=== PATIENT | female | born 1990 | race Caucasian/White ===

== ENCOUNTER 2017-06-18 10:20 | Outpatient (CLI) | payer OTHER ==
[~2017-06-18] VITALS: Ht 152.4 cm; Wt 52.6 kg
[~2017-06-18 10:20] MED LIST: FLONASE16 GM NASAL; LOTRISONE CREAM45 GM TOP; LOTRISONE CREAM45 GM TP; PRED FORTE0.05 MG/DR OP; RELAFEN500 MG; ZYRTEC10 MG PO
[2017-06-18] MEDS ORDERED: ANTICONCEPTIVOS (10:25)
== END 2017-06-18 11:50 | disposition home or self-care (01) ==
LOC: PPHC 10:20
DX: Z00.8 Encounter for other general examination (principal)

== ENCOUNTER 2017-08-10 07:08 | Outpatient (CLI) | payer OTHER ==
[~2017-08-10 07:08] MED LIST changes: +ANTICONCEPTIVOS
== END 2017-08-10 07:47 | disposition home or self-care (01) ==
LOC: RAD 07:08
DX: M54.6 Pain in thoracic spine (principal); Z12.31 Encounter for screening mammogram for malignant neoplasm of breast

== ENCOUNTER 2017-11-18 16:38 | Outpatient (CLI) | payer OTHER | END 2017-11-18 16:40 | disposition home or self-care (01) | LOC: LAB 16:38 | DX: D64.89 Other specified anemias (principal); E04.8 Other specified nontoxic goiter; E04.1 Nontoxic single thyroid nodule; E03.8 Other specified hypothyroidism ==

== ENCOUNTER 2018-06-07 07:34 | Outpatient (CLI) | payer OTHER | END 2018-06-07 07:37 | disposition home or self-care (01) | LOC: RAD 07:34 | DX: R05 Cough (principal) ==

== ENCOUNTER → 2018-06-07 | Outpatient (CLI) | payer OTHER | END | disposition home or self-care (01) | LOC: LAB 14:10 | DX: D64.89 Other specified anemias (principal); E11.9 Type 2 diabetes mellitus without complications; E78.2 Mixed hyperlipidemia; I10 Essential (primary) hypertension; E03.8 Other specified hypothyroidism ==

== ENCOUNTER 2018-06-29 07:12 | Outpatient (CLI) | payer OTHER | END 2018-06-29 07:19 | disposition home or self-care (01) | LOC: SONOGRAMA 07:12 | DX: M25.562 Pain in left knee (principal) ==

== ENCOUNTER 2018-07-05 09:08 | Outpatient (CLI) | payer OTHER | END 2018-07-05 17:00 | disposition home or self-care (01) | LOC: MRI 09:08 | DX: M25.562 Pain in left knee (principal) | CPT/HCPCS: 73721 ==

== ENCOUNTER 2018-09-12 08:01 | Outpatient (CLI) | payer OTHER | END 2018-09-12 08:11 | disposition home or self-care (01) | LOC: LAB 08:01 | DX: M45.9 Ankylosing spondylitis of unspecified sites in spine (principal); M06.80 Other specified rheumatoid arthritis, unspecified site ==

== ENCOUNTER 2018-09-16 08:35 | Outpatient (CLI) | payer OTHER | END 2018-09-16 09:00 | disposition home or self-care (01) | LOC: LAB 08:35 | DX: R05 Cough (principal); R06.02 Shortness of breath ==

== ENCOUNTER 2018-09-18 07:52 | Outpatient (CLI) | payer OTHER | END 2018-09-18 17:00 | disposition home or self-care (01) | LOC: TOM 07:52 | DX: Z03.89 Encounter for observation for other suspected diseases and conditions ruled out (principal); R05 Cough; R06.02 Shortness of breath ==

== ENCOUNTER 2018-10-31 13:26 | Outpatient (CLI) | payer OTHER | END 2018-10-31 14:23 | disposition home or self-care (01) | LOC: TOM 13:26 | DX: R42 Dizziness and giddiness (principal); R51 Headache ==

== ENCOUNTER 2018-11-30 13:47 | Outpatient (CLI) | payer OTHER ==
[~2018-11-30] VITALS: Ht 152.4 cm; Wt 54.9 kg
== END 2018-11-30 14:00 | disposition home or self-care (01) ==
LOC: OFIC 805 13:47
DX: H81.49 Vertigo of central origin, unspecified ear (principal); H93.90 Unspecified disorder of ear, unspecified ear; H69.90 Unspecified Eustachian tube disorder, unspecified ear

== ENCOUNTER 2018-12-13 08:37 | Outpatient (CLI) | payer OTHER | END 2018-12-13 13:41 | disposition home or self-care (01) | LOC: LAB 08:37 | DX: D68.61 Antiphospholipid syndrome (principal); M32.19 Other organ or system involvement in systemic lupus erythematosus; M35.00 Sjogren syndrome, unspecified; D86.9 Sarcoidosis, unspecified ==

== ENCOUNTER 2018-12-18 07:35 | Outpatient (CLI) | payer OTHER | END 2018-12-18 07:58 | disposition home or self-care (01) | LOC: NUCLEAR 07:35 | DX: M25.50 Pain in unspecified joint (principal) | CPT/HCPCS: 78306; A9503 ==

== ENCOUNTER 2019-04-10 09:05 | Outpatient (CLI) | payer OTHER | END 2019-04-10 09:18 | disposition home or self-care (01) | LOC: LAB 09:05 | DX: Z00.8 Encounter for other general examination (principal) ==

== ENCOUNTER 2019-04-12 09:27 | Outpatient (CLI) | payer OTHER | END 2019-04-12 10:32 | disposition home or self-care (01) | LOC: EKG 09:27 | DX: Z00.00 Encounter for general adult medical examination without abnormal findings (principal); J11.1 Influenza due to unidentified influenza virus with other respiratory manifestations ==

== ENCOUNTER 2019-10-22 08:59 | Outpatient (CLI) | payer OTHER ==
[~2019-10-22] VITALS: Ht 152.4 cm; Wt 56.7 kg
[2019-11-13] MEDS ORDERED: FLONASE16 GM NASAL (13:19)
[2019-11-13] MEDS ORDERED: ZYRTEC10 M3 PO (13:19)
[2019-11-13] MEDS ORDERED: DERMOTIC20 ML OTIC (13:21)
== END 2019-10-22 13:49 | disposition home or self-care (01) ==
LOC: OFIC 805 08:59
PROVIDERS: ATTEND Otolaryngology
DX: H93.8X3 Other specified disorders of ear, bilateral (principal); R42 Dizziness and giddiness; H61.93 Disorder of external ear, unspecified, bilateral

== ENCOUNTER 2019-11-06 07:03 | Outpatient (CLI) | payer OTHER ==
[2019-11-13] MEDS ORDERED: ZYRTEC10 M3 PO (13:19)
[2019-11-13] MEDS ORDERED: FLONASE16 GM NASAL (13:19)
[2019-11-13] MEDS ORDERED: DERMOTIC20 ML OTIC (13:21)
== END 2019-11-06 13:33 | disposition home or self-care (01) ==
LOC: TOM 07:03
PROVIDERS: ATTEND Otolaryngology
DX: J32.0 Chronic maxillary sinusitis (principal)

== ENCOUNTER → 2019-11-13 | Outpatient (CLI) | payer OTHER ==
[~2019-11-13] MED LIST changes: +DERMOTIC20 ML OTIC; +ZYRTEC10 M3 PO
== END | disposition home or self-care (01) ==
LOC: OFIC 805 11:30
PROVIDERS: ATTEND Otolaryngology
DX: L30.8 Other specified dermatitis (principal); J30.89 Other allergic rhinitis; R22.1 Localized swelling, mass and lump, neck

== ENCOUNTER 2020-02-18 07:06 | Outpatient (CLI) | payer OTHER | END 2020-02-18 12:29 | disposition home or self-care (01) | LOC: SONOGRAMA 07:06 | PROVIDERS: ATTEND Otolaryngology | DX: R22.1 Localized swelling, mass and lump, neck (principal) ==

== ENCOUNTER 2021-04-14 08:00 | Outpatient (CLI) | payer OTHER | END 2021-04-14 08:30 | disposition home or self-care (01) | LOC: PPH VACUNA 08:00 → EDBD 08:00 → PPH VACUNA 08:30 | PROVIDERS: ATTEND Emergency Medicine Pediatric Emergency Medicine | DX: Z23 Encounter for immunization (principal) ==

== ENCOUNTER 2021-06-20 12:06 | Emergency (ER) | payer OTHER ==
[~2021-06-20] VITALS: Ht 162.6 cm; Wt 50.8 kg
[2021-06-20] MEDS ORDERED: PREDNISOLONE ACE5 ML OP (12:21)
== END 2021-06-20 15:14 | disposition home or self-care (01) ==
LOC: ER 12:06 → EDBD 12:09 → ER 12:09
DX: O46.91 Antepartum hemorrhage, unspecified, first trimester (principal)

== ENCOUNTER 2021-09-03 14:43 | Outpatient (CLI) | payer OTHER ==
[~2021-09-03 14:43] MED LIST changes: +PREDNISOLONE ACE5 ML OP
== END 2021-09-03 15:54 | disposition home or self-care (01) ==
LOC: LAB 14:43
PROVIDERS: ATTEND General Practice
DX: Z20.822 Contact with and (suspected) exposure to COVID-19 (principal); R05.9 Cough, unspecified; R50.9 Fever, unspecified; R06.02 Shortness of breath

== ENCOUNTER 2022-08-16 13:07 | Outpatient (CLI) | payer OTHER | END 2022-08-16 14:46 | disposition home or self-care (01) | LOC: RAD 13:07 | PROVIDERS: ATTEND Pediatrics | DX: J40 Bronchitis, not specified as acute or chronic (principal); G44.209 Tension-type headache, unspecified, not intractable; R05.9 Cough, unspecified; Z20.822 Contact with and (suspected) exposure to COVID-19; U07.1 COVID-19 ==

== ENCOUNTER 2022-08-17 08:35 | Outpatient (CLI) | payer OTHER | END 2022-08-17 08:43 | disposition home or self-care (01) | LOC: LAB 08:35 | PROVIDERS: ATTEND Pediatrics | DX: J40 Bronchitis, not specified as acute or chronic (principal); G44.209 Tension-type headache, unspecified, not intractable; R05.8 Other specified cough; R50.9 Fever, unspecified; Z20.822 Contact with and (suspected) exposure to COVID-19; U07.1 COVID-19 ==

== ENCOUNTER 2022-12-20 13:37 | Outpatient (CLI) | payer OTHER | END 2022-12-20 13:44 | disposition home or self-care (01) | LOC: RAD 13:37 | DX: M99.01 Segmental and somatic dysfunction of cervical region (principal); M99.02 Segmental and somatic dysfunction of thoracic region; M99.03 Segmental and somatic dysfunction of lumbar region; M99.04 Segmental and somatic dysfunction of sacral region; M99.05 Segmental and somatic dysfunction of pelvic region ==

== ENCOUNTER 2022-12-21 13:05 | Outpatient (CLI) | payer OTHER | END 2022-12-21 13:10 | disposition home or self-care (01) | LOC: RAD 13:05 | PROVIDERS: ATTEND General Practice | DX: M79.671 Pain in right foot (principal) ==

== ENCOUNTER → 2022-12-23 15:27 | Outpatient (CLI) | payer OTHER | END | disposition home or self-care (01) | LOC: LAB 12:38 | PROVIDERS: ATTEND Radiology Diagnostic Radiology | DX: R10.30 Lower abdominal pain, unspecified (principal) ==

== ENCOUNTER 2022-12-24 07:05 | Outpatient (CLI) | payer OTHER | END 2022-12-24 07:30 | disposition home or self-care (01) | LOC: MRI 07:05 | PROVIDERS: ATTEND Physical Medicine & Rehabilitation | DX: M54.16 Radiculopathy, lumbar region (principal); R20.2 Paresthesia of skin | CPT/HCPCS: 72149 ==

== ENCOUNTER → 2023-04-11 08:06 | Outpatient (CLI) | payer OTHER ==
[2023-04-11 09:19] LABS: PH,URINE 6.5 (5.0-8.0); URINE APPEARANCE Clear; URINE BILIRRUBIN Negative (NEGATIVE); URINE BLOOD Negative; URINE COLOR Yellow; URINE GLUCOSE Negative (NEGATIVE); URINE LEUKOCYTE Negative; URINE NITRATE Negative; URINE PROTEIN Negative (NEGATIVE)
[2023-04-11 09:21] LABS: HEMATOCRIT 34.7 % (36.0-45.00); HEMOGLOBIN 11.8 g/dL (12.0-15.00); MEAN CELL VOLUME 86.5 fL (80.00-100.00); MEAN CORPUSCULAR HEMOGLOBIN 29.4 pg (27.00-32.0); PLATELET COUNT 362 K/uL (150-450); RED BLOOD COUNT 4.01 M/uL (4.00-6.00); RED CELL DISTRIBUTION WIDTH 14.9 % (11.5-14.5)
[2023-04-11 09:24] LABS: URINE BACTERIA 1988.2 uL (0.0-1933); URINE EPITHELIAL CELLS 13.4 uL (0.0-38.8); URINE RBC 7.6 uL (0.0-20.8); URINE WBC 32.4 uL (0.0-23.2)
[2023-04-11 09:50] LABS: BILIRUBIN TOTAL 0.65 mg/dL (0.3-1.2); CALCIUM 9.2 mg/dL (8.5-10.1); CHOL HDL RATIO 1.8 (0-5.0); CREATININE SERUM 0.57 mg/dL (0.55-1.02); GFR 122.15; GLOBULINA 3.4 G/DL (2.4-3.5); POTASSIUM 4.54 mEq/L (3.5-5.1); T4 FREE 1.03 NG/ML (0.76-1.46); TOTAL PROTEIN 7.4 gm/dL (6.4-8.2); TSH 0.697 uIU/mL (0.358-3.74)
== END | disposition home or self-care (01) ==
LOC: LAB 08:06
PROVIDERS: ATTEND Internal Medicine Sports Medicine
DX: D64.9 Anemia, unspecified (principal); E11.9 Type 2 diabetes mellitus without complications; E78.2 Mixed hyperlipidemia; I10 Essential (primary) hypertension; E03.8 Other specified hypothyroidism

== ENCOUNTER 2023-04-22 08:22 | Outpatient (CLI) | payer OTHER ==
[2023-04-22 10:30] LABS: PH,URINE 6.5 (5.0-8.0); URINE APPEARANCE Clear; URINE BILIRRUBIN Negative (NEGATIVE); URINE BLOOD Negative; URINE COLOR Yellow; URINE GLUCOSE Negative (NEGATIVE); URINE LEUKOCYTE Negative; URINE NITRATE Negative; URINE PROTEIN Negative (NEGATIVE)
[2023-04-22 10:34] LABS: URINE EPITHELIAL CELLS 1.5 uL (0.0-38.8); URINE RBC 6.3 uL (0.0-20.8)
[2023-04-22 10:48] LABS: URINE WBC 0.4 uL (0.0-23.2)
== END 2023-04-22 08:38 | disposition home or self-care (01) ==
LOC: LAB 08:22
PROVIDERS: ATTEND Physical Medicine & Rehabilitation
DX: N39.0 Urinary tract infection, site not specified (principal)

== ENCOUNTER 2023-04-22 08:46 | Outpatient (CLI) | payer OTHER | END 2023-04-22 08:48 | disposition home or self-care (01) | LOC: SONOGRAMA 08:46 | PROVIDERS: ATTEND Internal Medicine Sports Medicine | DX: N63.0 Unspecified lump in unspecified breast (principal) ==

== ENCOUNTER 2023-08-24 08:16 | Outpatient (CLI) | payer OTHER ==
[2023-08-24 09:03] LABS: HEMATOCRIT 35.4 % (36.0-45.00); HEMOGLOBIN 11.7 g/dL (12.0-15.00); MEAN CELL VOLUME 84.5 fL (80.00-100.00); MEAN CORPUSCULAR HGB CONC 33.1 g/dl (32.0-36.0); PLATELET COUNT 363 K/uL (150-450); RED BLOOD COUNT 4.19 M/uL (4.00-6.00); RED CELL DISTRIBUTION WIDTH 15.1 % (11.5-14.5)
[2023-08-24 09:49] LABS: ALBUMIN 4.1 gm/dL (3.4-5.0); BILIRUBIN TOTAL 0.66 mg/dL (0.3-1.2); CALCIUM 9.2 mg/dL (8.5-10.1); CHOL HDL RATIO 1.9 (0-5.0); CREATININE SERUM 0.64 mg/dL (0.55-1.02); GFR 106.22; GLOBULINA 3.4 G/DL (2.4-3.5); POTASSIUM 4.98 mEq/L (3.5-5.1); TOTAL PROTEIN 7.5 gm/dL (6.4-8.2); TSH 0.605 uIU/mL (0.358-3.74)
[2023-08-24 10:49] LABS: VITAMIN D3 25 HYDROXY 22.21 ng/ml (30-120)
[2023-08-25 08:55] LABS: URINE APPEARANCE Clear; URINE BACTERIA 52.8 uL (0.0-1933); URINE BILIRRUBIN Negative (NEGATIVE); URINE BLOOD Negative; URINE COLOR Yellow; URINE GLUCOSE Negative (NEGATIVE); URINE LEUKOCYTE Negative; URINE NITRATE Negative; URINE PROTEIN Negative (NEGATIVE); URINE RBC 2.8 uL (0.0-20.8); URINE UROBILINOGEN 0.2 E.U./dl
[2023-08-25 09:14] LABS: URINE WBC 0.3 uL (0.0-23.2)
== END 2023-08-24 08:28 | disposition home or self-care (01) ==
LOC: LAB 08:16
PROVIDERS: ATTEND Specialist
DX: G35 Multiple sclerosis (principal)

== ENCOUNTER → 2024-02-17 07:18 | Outpatient (CLI) | payer OTHER ==
[2024-02-17 09:23] LABS: CREATININE SERUM 0.56 mg/dL (0.55-1.02)
== END | disposition home or self-care (01) ==
LOC: LAB 07:18
DX: G35 Multiple sclerosis (principal)

== ENCOUNTER 2024-02-20 06:37 | Outpatient (CLI) | payer OTHER | END 2024-02-20 12:41 | disposition home or self-care (01) | LOC: MRI 06:37 | PROVIDERS: ATTEND Specialist | DX: G35 Multiple sclerosis (principal) | CPT/HCPCS: 70553; 72156; 72157 ==

== ENCOUNTER 2024-05-18 11:57 | Outpatient (CLI) | payer OTHER | END 2024-05-18 12:29 | disposition home or self-care (01) | LOC: RAD 11:57 | PROVIDERS: ATTEND Internal Medicine Pulmonary Disease | DX: J45.31 Mild persistent asthma with (acute) exacerbation (principal) ==

== ENCOUNTER 2024-05-18 12:00 | Outpatient (CLI) | payer OTHER ==
[2024-05-18 12:49] LABS: HEMATOCRIT 35.5 % (36.0-45.00); HEMOGLOBIN 11.9 g/dL (12.0-15.00); MEAN CELL VOLUME 86.4 fL (80.00-100.00); MEAN CORPUSCULAR HEMOGLOBIN 28.9 pg (27.00-32.0); MEAN CORPUSCULAR HGB CONC 33.4 g/dl (32.0-36.0); PLATELET COUNT 427 K/uL (150-450); RED BLOOD COUNT 4.11 M/uL (4.00-6.00); RED CELL DISTRIBUTION WIDTH 15.2 % (11.5-14.5)
== END 2024-05-18 12:05 | disposition home or self-care (01) ==
LOC: LAB 12:00
PROVIDERS: ATTEND Internal Medicine Pulmonary Disease
DX: J45.31 Mild persistent asthma with (acute) exacerbation (principal); E83.9 Disorder of mineral metabolism, unspecified

== ENCOUNTER 2024-07-13 08:59 | Outpatient (CLI) | payer OTHER ==
[2024-07-13 10:22] LABS: HEMATOCRIT 33.9 % (36.0-45.00); HEMOGLOBIN 11.3 g/dL (12.0-15.00); MEAN CELL VOLUME 85.4 fL (80.00-100.00); MEAN CORPUSCULAR HEMOGLOBIN 28.4 pg (27.00-32.0); MEAN CORPUSCULAR HGB CONC 33.2 g/dl (32.0-36.0); PLATELET COUNT 349 K/uL (150-450); RED BLOOD COUNT 3.97 M/uL (4.00-6.00)
[2024-07-13 10:36] LABS: PH,URINE 5.5 (5.0-8.0); URINE APPEARANCE Clear; URINE BILIRRUBIN Negative (NEGATIVE); URINE BLOOD Negative; URINE COLOR Yellow; URINE GLUCOSE Negative (NEGATIVE); URINE KETONE Negative (NEGATIVE); URINE LEUKOCYTE Negative; URINE NITRATE Negative; URINE PROTEIN Negative (NEGATIVE)
[2024-07-13 10:38] LABS: URINE BACTERIA 156.6 uL (0.0-1933); URINE EPITHELIAL CELLS 3.3 uL (0.0-38.8); URINE WBC 2.6 uL (0.0-23.2)
[2024-07-13 10:44] LABS: URINE CAST 0.58 uL (0.0-1.40)
[2024-07-13 11:20] LABS: ALBUMIN 3.9 gm/dL (3.4-5.0); BILIRUBIN TOTAL 0.72 mg/dL (0.3-1.2); CALCIUM 8.8 mg/dL (8.5-10.1); CHOL HDL RATIO 1.7 (0-5.0); CREATININE SERUM 0.56 mg/dL (0.55-1.02); GFR 123.19; GLOBULINA 3.2 G/DL (2.4-3.5); POTASSIUM 4.62 mEq/L (3.5-5.1); TOTAL PROTEIN 7.1 gm/dL (6.4-8.2); TSH 0.445 uIU/mL (0.358-3.74)
== END 2024-07-13 09:09 | disposition home or self-care (01) ==
LOC: LAB 08:59
PROVIDERS: ATTEND Internal Medicine
DX: I11.9 Hypertensive heart disease without heart failure (principal); E11.9 Type 2 diabetes mellitus without complications; E79.2 Myoadenylate deaminase deficiency; E03.9 Hypothyroidism, unspecified

== ENCOUNTER 2024-08-21 07:13 | Outpatient (CLI) | payer OTHER ==
[2024-08-21 08:54] LABS: HEMATOCRIT 36.8 % (36.0-45.00); HEMOGLOBIN 11.9 g/dL (12.0-15.00); MEAN CELL VOLUME 86.5 fL (80.00-100.00); MEAN CORPUSCULAR HEMOGLOBIN 27.9 pg (27.00-32.0); MEAN CORPUSCULAR HGB CONC 32.3 g/dl (32.0-36.0); PLATELET COUNT 388 K/uL (150-450); RED BLOOD COUNT 4.25 M/uL (4.00-6.00); RED CELL DISTRIBUTION WIDTH 14.8 % (11.5-14.5)
[2024-08-21 09:40] LABS: PH,URINE 7.5 (5.0-8.0); URINE APPEARANCE Clear; URINE BILIRRUBIN Negative (NEGATIVE); URINE BLOOD Negative; URINE COLOR Yellow; URINE GLUCOSE Negative (NEGATIVE); URINE KETONE Negative (NEGATIVE); URINE LEUKOCYTE Negative; URINE NITRATE Negative; URINE PROTEIN Negative (NEGATIVE)
[2024-08-21 09:41] LABS: URINE BACTERIA 775.8 uL (0.0-1933); URINE EPITHELIAL CELLS 8.3 uL (0.0-38.8); URINE RBC 13.2 uL (0.0-20.8); URINE WBC 10.2 uL (0.0-23.2)
[2024-08-21 09:42] LABS: URINE CAST 0.29 uL (0.0-1.40)
[2024-08-21 09:50] LABS: ALBUMIN 4.1 gm/dL (3.4-5.0); BILIRUBIN TOTAL 0.75 mg/dL (0.3-1.2); CALCIUM 9.1 mg/dL (8.5-10.1); CHOL HDL RATIO 1.7 (0-5.0); CREATININE SERUM 0.6 mg/dL (0.55-1.02); GFR 113.76; GLOBULINA 3.5 G/DL (2.4-3.5); POTASSIUM 4.2 mEq/L (3.5-5.1); TOTAL PROTEIN 7.6 gm/dL (6.4-8.2); TSH 0.683 uIU/mL (0.358-3.74)
[2024-08-21 13:12] LABS: VITAMIN D3 25 HYDROXY 35.8 ng/ml (30-120)
== END 2024-08-21 07:26 | disposition home or self-care (01) ==
LOC: LAB 07:13
PROVIDERS: ATTEND Specialist
DX: G35 Multiple sclerosis (principal)

== ENCOUNTER 2025-02-26 08:35 | Outpatient (CLI) | payer OTHER ==
[2025-02-26 09:31] LABS: BASO % 1.1 % (0.1-1.2); EOS # 0.21 (0.04-0.54); EOS % 2.2 % (0.7-7.0); LYMPH # 3.64 (1.18-3.74); LYMPH % 39.0 % (19.3-53.1); MEAN PLATELET VOLUME 9.60 fl (9.4-12.4); MONO # 1.08 (0.24-0.82); MONO % 11.6 % (4.7-12.5); NEUT # 4.26 (1.56-6.13); NEUT % 45.6 % (34.0-71.1); RED CELL DISTRIBUTION WIDTH 14.9 % (11.6-14.4)
[2025-02-26 09:39] LABS: URINE APPEARANCE Clear; URINE BILIRRUBIN Negative (NEGATIVE); URINE BLOOD Negative; URINE COLOR Yellow; URINE GLUCOSE Negative (NEGATIVE); URINE KETONE Negative (NEGATIVE); URINE LEUKOCYTE Negative; URINE NITRATE Negative; URINE PROTEIN Negative (NEGATIVE); URINE UROBILINOGEN 0.2 E.U./dl
[2025-02-26 09:45] LABS: URINE BACTERIA 70.7 uL (0.0-1933); URINE RBC 2.6 uL (0.0-20.8)
[2025-02-26 09:53] LABS: URINE CAST 0.00 uL (0.0-1.40); URINE EPITHELIAL CELLS 1.2 uL (0.0-38.8); URINE WBC 0.9 uL (0.0-23.2)
[2025-02-26 10:08] LABS: ALT/SGPT 17.0 U/L (12-78); AST/SGOT 9.0 U/L (15-37); BILIRUBIN TOTAL 0.59 mg/dL (0.3-1.2); BUN CREA RATIO 14.0 (7.0-25.0); CHOL HDL RATIO 1.7 (0-5.0); CREATININE SERUM 0.57 mg/dL (0.55-1.02); GFR 120.7; GLOBULINA 3.1 G/DL (2.4-3.5); GLUCOSE FASTING 93.0 mg/dL (65-100); HDL 94.0 mg/dl (40-60); LDL 56.0 mg/dl (0-130); OSMOLALITY SERUM 277.0 MOSM/KG (275-295); TSH 0.744 uIU/mL (0.358-3.74); VLDL 6.0 (0-39)
[2025-02-26 11:47] LABS: VITAMIN D3 25 HYDROXY 24.97 ng/ml (30-120)
== END 2025-02-26 08:41 | disposition home or self-care (01) ==
LOC: LAB 08:35
PROVIDERS: ATTEND Specialist
DX: E03.9 Hypothyroidism, unspecified (principal); N39.0 Urinary tract infection, site not specified; E78.70 Disorder of bile acid and cholesterol metabolism, unspecified; E53.8 Deficiency of other specified B group vitamins; E55.9 Vitamin D deficiency, unspecified; E11.9 Type 2 diabetes mellitus without complications; Z20.820 Contact with and (suspected) exposure to varicella; Z11.9 Encounter for screening for infectious and parasitic diseases, unspecified; Z12.9 Encounter for screening for malignant neoplasm, site unspecified; G35.A Relapsing-remitting multiple sclerosis